=== PATIENT | female | born 1985 | race Caucasian/White ===

== ENCOUNTER 2016-09-20 05:23 | Day surgery (SDC) | payer BC, OTHER ==
[~2016-09-20] VITALS: Ht 167.6 cm; Wt 99.3 kg
--- NOTE | ~2016-09-20 | O ---
[facility] [place] [address] OPERATIVE REPORT Name: MARIELA MICHAEL Room #: 150-2 [facility] M.R.#: [id number] Admission: 09/20/16 Attend Phys: Gutierrez Francis MD Discharge: Date of : 83 Report #: [id number] THIS REPORT FOR: //name// CC: Gutierrez Jefferson DATE OF SERVICE: 09/20/2016 PREOPERATIVE DIAGNOSIS: Right knee pain. POSTOPERATIVE DIAGNOSES: 1. Right knee vertical tear posterior horn of lateral meniscus. 2. Grade 2 chondromalacia of the medial femoral condyle. PROCEDURE: 1. Right knee arthroscopy with partial lateral meniscectomy. 2. Chondroplasty medial femoral condyle. SURGEON: Gutierrez Francis MD. BUSINESS ADMINISTRATION PROFESSOR: Love Quijano PA-C. ANESTHESIA: LMA. TOURNIQUET TIME: 26 minutes. ESTIMATED BLOOD LOSS: Minimal. COMPLICATIONS: None. SPECIMENS: None. CONDITION UPON LEAVING THE OPERATING ROOM: Stable. INDICATIONS FOR PROCEDURE: The patient is a 31-year-old female who has had lateral , right knee pain and popping for several weeks. She had an MRI scan that showed only chondromalacia of the medial femoral condyle; however, she has had persistent mechanical symptoms and lateral knee pain and after discussion with her, she elected for diagnostic knee arthroscopy. DESCRIPTION OF PROCEDURE: Risks, benefits, alternatives, complications were discussed in detail with the patient including but not limited to risk of anesthesia, risk of damage to nerves, arteries, blood vessels, risk for infection, bleeding, risk for continued knee pain and need for reoperation. Informed consent was obtained from the patient. Right knee was appropriately marked in the preoperative holding area. IV clindamycin was given for [facility] [address] [place] [address] OPERATIVE REPORT Name: MARIELA MICHAEL Room #: 150-2 [facility] M.R.#: [id number] Admission: 09/20/16 Attend Phys: Gutierrez Francis MD Discharge: Date of : 83 Report #: [id number] preoperative antibiotics. She was brought to the operating room and placed in supine position on operating room table. LMA anesthesia was induced without complication. Tourniquet was placed on the right thigh. Right lower extremity was prepped and draped in normal sterile fashion. Timeout was performed properly identifying the patient and procedure as well as the instrumentation. All in the operating room were in agreement. Right lower extremity was exsanguinated, tourniquet was inflated. Tourniquet time was 26 minutes. Standard anterolateral portal was established with an 11 blade through the skin. Arthroscope was introduced into the patellofemoral compartment, diagnostic arthroscopy was undertaken. Patellofemoral compartment was visualized and found to be without pathology. Medial gutter was visualized and found to be without pathology. Medial compartment was visualized and medial portal was established under arthroscopic visualization. Probe was introduced into the medial compartment. There was some grade 2 chondromalacia of the medial femoral condyle with some unstable cartilaginous flaps. Chondroplasty of this area was performed with the oscillating shaver. Medial meniscus was visualized and probed and found to be intact. The notch was visualized and found to have an intact anterior cruciate ligament. The scope was placed through the intra-articular notch to look posteromedially and there was no loose body noted there. Lateral compartment was visualized and there was actually a vertical tear of the posterior horn of lateral meniscus that was quite displaceable and unstable. A partial lateral meniscectomy of the posterior horn was then performed with an arthroscopic biter and smoothed back with arthroscopic shaver. After this, all fluid was allowed to drain from the knee. Knee was injected with 10 mL of 0.5% Marcaine. Incision was closed with 3-0 nylon. Soft dressing of Adaptic, 4 x 4, Webril, Braden wrap were applied. The patient tolerated this procedure well and went to the recovery room under the care of anesthesia postoperatively. <ELECTRONICALLY SIGNED> By: Gutierrez Francis MD 09/22/16 [id number] Gutierrez Francis MD /mahesh
[~2016-09-20 05:23] MED LIST: AMBIEN PO; KLONOPIN1 MG PO; LEVOTHYROXIN0.125 M1 PO; PROTONIX 20 MG20 M1 PO; PROTONIX40 M1 PO; PROZAC PO; PROZAC20 MG; TYLENOL325 MG PO; VYVANSE70 MG PO
[2016-09-20 07:00] VITALS: BP 120/73
[2016-09-20 07:02] LABS: HEMATOCRIT 39.2 % (37.0-47.0); HEMOGLOBIN 12.8 gm/dL (12.0-15.0); MCH 26.8 pg (26.0-34.0); MCHC 32.7 g/dL (28.0-37.0); MCV 82.1 fL (80.0-100.0); RBC 4.77 mil/uL (4.20-5.00); RDW 14.2 % (10.5-14.5); WBC 11.7 thou/uL (4.0-11.0)
[2016-09-20] MEDS ORDERED: HYDROCODONE-AP1 EAC6 PO (08:21)
[2016-09-20 08:39] VITALS: BP 120/73
== END 2016-09-20 09:15 ==
LOC: TBA 05:23 → OR 05:23
PROVIDERS: Orthopaedic Surgery
DX: M23.251 Derangement of posterior horn of lateral meniscus due to old tear or injury, right knee (principal); G47.30 Sleep apnea, unspecified; F32.9 Major depressive disorder, single episode, unspecified; F41.9 Anxiety disorder, unspecified; E03.8 Other specified hypothyroidism; K21.9 Gastro-esophageal reflux disease without esophagitis; Z79.899 Other long term (current) drug therapy; Z98.890 Other specified postprocedural states; Z88.1 Allergy status to other antibiotic agents; Z88.2 Allergy status to sulfonamides; Z88.8 Allergy status to other drugs, medicaments and biological substances
CPT/HCPCS: 50010; 50101; 50405; 51038; 54170; 56526; 62110; 62900; 70005